=== PATIENT | female | born 1975 | race Two or more races ===

== ENCOUNTER 2020-10-13 15:33 | Inpatient (IN) | payer MEDICAID ==
[~2020-10-13] VITALS: Ht 160 cm; Wt 69.3 kg
[2020-10-13 16:59] LABS: BILIRUBIN,URINE NEGATIVE (NEG); CLARITY,URINE CLEAR; COLOR,URINE YELLOW; NITRITE,URINE NEGATIVE (NEG); PH,URINE 6.5 (<5.0-8.0); PROTEIN,URINE NEGATIVE (NEG-TRACE); UROBILINOGEN,URINE 0.2 mg/dL (0.2 mg/dL)
[2020-10-13 17:07] LABS: BACTERIA,URINE FEW /HPF (0-FEW)
[2020-10-13 17:28] LABS: BASO % 0 % (0-3); EOS # 0.2 x10^3/uL (0.0-0.7); EOS % 2 % (0-3); HEMATOCRIT 33.9 % (36.0-47.0); HEMOGLOBIN 11.2 g/dL (12.0-15.5); LYMPH # 1.1 x10^3/uL (1.0-4.8); LYMPH % 10 % (24-48); MEAN CORPUSCULAR HEMOGLOBIN 26 pg (25-35); MEAN CORPUSCULAR HGB CONC 33 g/dL (31-37); MEAN CORPUSCULAR VOLUME 80 fL (79-100); MONO # 0.9 x10^3/uL (0.0-1.1); MONO % 9 % (0-9); NEUT # 8.2 x10^3/uL (1.8-7.7); NEUT % 79 % (31-73); PLATELET COUNT 252 x10^3/uL (140-400); RED BLOOD COUNT 4.25 x10^6/uL (3.50-5.40); RED CELL DISTRIBUTION WIDTH 13.4 % (11.5-14.5); WHITE BLOOD COUNT 10.4 x10^3/uL (4.0-11.0)
[2020-10-13] MEDS ORDERED: ONDANSETRON PF 4 MG/2 ML VIAL. IV ONE (17:30)
[2020-10-13] MEDS ORDERED: KETOROLAC 30 MG/ML VIAL. IV ONE (17:30)
[2020-10-13] MEDS ORDERED: ACETAMINOPHEN 500 MG TABLET PO ONE (17:30)
[2020-10-13] MEDS ORDERED: IV NORMAL SALINE 1000ML BAG 1,000 ML IV ONE (17:30)
[2020-10-13 17:40] LABS: CALCIUM 8.3 mg/dL (8.5-10.1); CREATININE 0.7 mg/dL (0.6-1.0); GFR 90.9
[2020-10-13 17:45] LABS: ALBUMIN 3.4 g/dL (3.4-5.0); ALBUMIN/GLOBULIN RATIO 0.8 (1.0-1.7); TOTAL BILIRUBIN 0.2 mg/dL (0.2-1.0); TOTAL PROTEIN 7.5 g/dL (6.4-8.2)
--- NOTE | 2020-10-13 18:11 | RAD ---
Study: CT abdomen/pelvis without intravenous contrast Indication: Left flank pain. Fever. Comparison: None. Technique: Helical CT imaging performed of the abdomen and pelvis without the use of intravenous cont rast. Sagittal and coronal reformats were obtained. One or more of the following individualized dose reduction techniques were utilized for this examinat ion: 1. Automated exposure control 2. Adjustment of the mA and/or kV according to patient size 3. Use of iterative reconstruction technique. Findings: Inherently limited evaluation without intravenous contrast. Generalized uroepithelial thickening on the left in addition to mild inflammatory fatty stranding marilyn ng the left ureter and surrounding the left kidney. The left kidney is smaller in size relative to th e right with several areas of cortical thinning. Mild left hydronephrosis. No obstructing stone is id entified. Mild/moderate distention of the urinary bladder without wall thickening. No bladder stone o r definitive layering debris. The right kidney is normal in size and morphology. No intrarenal nephrolithiasis or collecting system dilatation on the right. No focal abnormality of the liver. Unremarkable gallbladder, biliary tree, pancreas and adrenal gland s. The spleen is within normal limits for size. Within normal limits uterus and adnexa. Unremarkable colon and appendix. Nonobstructed small bowel. U nremarkable stomach. Nonaneurysmal aorta. No lymphadenopathy. No free fluid or pneumoperitoneum. Nonspecific fatty reticulation of the ventral more so than dorsal subcutaneous tissues at several loc ations. No localized fluid collection within the abdominal wall soft tissues. Fat-containing umbilica l hernia without complex features. Partially imaged breast implants. Minimal basilar volume loss. No localized airspace infiltrate or no dule at the lung bases. The visualized mediastinal contents are within normal limits. No acute or aggressive osseous process. Impression: Generalized uroepithelial thickening of the left intrarenal collecting system and ureter in addition to mild perinephric and periureteral inflammation. Mild hydronephrosis on the left as well. No associ ated obstructing stone within the ureter or a recently passed stone within the urinary bladder. In th e setting of small size of the left kidney with areas of cortical thinning/scarring, acute pyelonephr itis is the leading consideration superimposed on the sequela of prior bouts of infection. Recommend correlation with urinalysis. Electronically signed by: OSMIN DODD MD (10/13/2020 6:08 PM) [facility]
[2020-10-13] MEDS ORDERED: cefTRIAXone IV Push 1 GM VIAL. IVP ONE (18:30)
--- NOTE | 2020-10-13 19:09 | PDOC1 ---
History and Physical Date of Admission Date of Admission DATE: 10/13/20 TIME: 19:08 Identification/Chief Complaint Chief Complaint fever, back pain since History of Present Illness History of Present Illness 45 yr old femal presented to er with fever, back pain, tachycardia x 4 days, now inc in severity, PT SPEAKS irish well WBC OK BUT has left shift lactic acid < 1 ua pos for leukocytes, has left cva tenderness ct c/w pyelo and sono shows no abscess, blood and urine cultured, iv zosyn started in ER estimate LOS > 48 HRS due to sepsis on presentation, likely will have cyclic spiking fevers Past Medical History Cardiovascular: No pertinent hx Pulmonary: No pertinent hx GI: No pertinent hx Heme/Onc: No pertinent hx Hepatobiliary: No pertinent hx Psych: No pertinent hx Infectious disease: No pertinent hx ENT: No pertinent hx Renal/: No pertinent hx Endocrine: No pertinent hx Family History Family History: Hypertension Social History Smoke: No ALCOHOL: occassional Drugs: None Current Medications Current Medications Current Medications Sodium Chloride 1,000 ml @ 1,000 mls/hr 1X ONCE IV Last administered on 10/13/20at 18:22; Start 10/13/20 at 17:30; Stop 10/13/20 at 18:29; Status DC Ondansetron HCl (Zofran) 4 mg 1X ONCE IV Last administered on 10/13/20at 18:21; Start 10/13/20 at 17:30; Stop 10/13/20 at 17:31; Status DC Ketorolac Tromethamine (Toradol 30mg Vial) 30 mg 1X ONCE IV Last administered on 10/13/20at 18:21; Start 10/13/20 at 17:30; Stop 10/13/20 at 17:31; Status DC Acetaminophen (Tylenol) 1,000 mg 1X ONCE PO Last administered on 10/13/20at 18:21; Start 10/13/20 at 17:30; Stop 10/13/20 at 17:31; Status DC Ceftriaxone Sodium (Rocephin) 1 gm 1X ONCE IVP ; Start 10/13/20 at 18:30; Stop 10/13/20 at 18:31; Status DC Allergies Allergies: Coded Allergies: No Known Drug Allergies (Unverified , 10/13/20) ROS Review of System Eyes: Denies change in visual acuity. [] HENT: Denies nasal congestion or sore throat. [] Respiratory: Denies cough or shortness of breath. [] Cardiovascular: Denies chest pain or edema. [] GI: Denies abdominal pain, nausea, vomiting, bloody stools or diarrhea. [] : Denies dysuria. [] Musculoskeletal: Denies back pain or joint pain. [] Integument: Denies rash. [] Neurologic: Denies headache, focal weakness or sensory changes. [] Endocrine: Denies polyuria or polydipsia. [] Lymphatic: Denies swollen glands. [] Psychiatric: Denies depression or anxiety. [] General: YES: Chills, Fatigue, Appetite, Other (fevere) PSYCHOLOGICAL ROS: No: Anxiety, Behavioral Disorder, Concentration difficultie, Decreased libido, Depression, Disorientation, Hallucinations, Hostility, Irritablity, Memory difficulties, Mood Swings, Obsessive thoughts, Physical abuse, Sexual abuse, Sleep disturbances, Suicidal ideation, Other Eyes: No Blurry vision, No Decreased vision, No Double vision, No Dry eyes, No Excessive tearing, No Eye Pain, No Itchy Eyes, No Loss of vision, No Photophobia, No Scotomata, No Uses contacts, No Uses glasses, No Other HEENT: No: Heacaches, Visual Changes, Hearing change, Nasal congestion, Nasal discharge, Oral lesions, Sinus pain, Sore Throat, Epistaxis, Sneezing, Snoring, Tinnitus, Vertigo, Vocal changes, Other ALLERGY AND IMMUNOLOGY: No: Hives, Insect Bite Sensitivity, Itchy/Watery Eyes, Nasal Congestion, Post Nasal Drip, Seasonal Allergies, Other Hematological and Lymphatic: No: Bleeding Problems, Blood Clots, Blood Presley sfusions, Brusing, Night Sweats, Pallor, Swollen Lymph Nodes, Other ENDOCRINE: No: Breast Changes, Galactorrhea, Hair Pattern Changes, Hot Flashes, Malaise/lethargy, Mood Swings, Palpitations, Polydipsia/polyuria, Skin Changes, Temperature Intolerance, Unexpected Weight Changes, Other Breast: No New/Changing Breast Lumps, No Nipple changes, No Nipple discharge, No Other Respiratory: No: Cough, Hemoptysis, Orthopnea, Pleuritic Pain, Shortness of breath, SOB with excertion, Sputum Changes, Stridor, Tachypnea, Wheezing, Other Cardiovascular: No Chest Pain, No Palpitations, No Orthopnea, No Paroxysmal Noc. Dyspnea, No Edema, No Lt Headedness, No Other Gastrointestinal: Yes Nausea, Yes Vomiting; No Abdominal Pain, No Diarrhea, No Constipation, No Melena, No Hematochezia, No Other Genitourinary: No Dysuria, No Frequency, No Incontinence, No Hematuria, No Retention, No Discharge, No Urgency, No Pain, No Flank Pain, No Other, No , No , No , No , No , No , No Musculoskeletal: No Gait Disturbance, No Joint Pain, No Joint Stiffness, No Joint Swelling, No Muscle Pain, No Muscular Weakness, No Pain In:, No Swelling In:, No Other Neurological: No Behavorial Changes, No Bowel/Bladder ControlChng, No Confusion, No Dizziness, No Gait Disturbance, No Headaches, No Impaired Coord/balance, No Memory Loss, No Numbness/Tingling, No Seizures, No Speech Problems, No Tremors, No Visual Changes, No Weakness, No Other Skin: No Dry Skin, No Eczema, No Hair Changes, No Lumps, No Mole Changes, No Mottling, No Nail Changes, No Pruritus, No Rash, No Skin Lesion Changes, No Other, No Acne Physical Exam Physical Exam left cva tenderness General: Alert, Oriented X3, Cooperative, mild distress HEENT: PERRLA Lungs: Clear to auscultation, Normal air movement Heart: S1S2, RRR, no thrills, no gallops, no murmurs Cardiovascular: S1, S2 Breasts: Not examined Abdomen: Normal bowel sounds, Soft, No tenderness Rectal Exam: not examined PELVIC: Examination not indicated Extremities: No cyanosis, No edema Neuro: Normal speech, Strength at 5/5 X4 ext, Sensation intact, Cranial nerves 3-12 NL Psych/Mental Status: Mental status NL, Mood NL Vitals Vitals Vital Signs Date Time Temp Pulse Resp B/P (MAP) Pulse Ox O2 Delivery O2 Flow Rate FiO2 10/13/20 16:41 101.2 99 18 120/60 (80) 99 Room Air 101.2 Labs Labs Laboratory Tests Test 10/13/20 16:45 10/13/20 16:53 10/13/20 17:10 Urine Collection Type Unknown Urine Color Yellow Urine Clarity Clear Urine pH 6.5 (<5.0-8.0) Urine Specific [place] <=1.005 (1.000-1.030) Urine Protein Negative mg/dL (NEG-TRACE) Urine Glucose (UA) Negative mg/dL (NEG) Urine Ketones (Stick) Negative mg/dL (NEG) Urine Blood Trace (NEG) Urine Nitrite Negative (NEG) Urine Bilirubin Negative (NEG) Urine Urobilinogen Dipstick 0.2 mg/dL (0.2 mg/dL) Urine Leukocyte Esterase Moderate (NEG) Urine RBC 1-2 /HPF (0-2) Urine WBC 11-20 /HPF (0-4) Urine Squamous Epithelial Cells Mod /LPF Urine Bacteria Few /HPF (0-FEW) Bedside Urine HCG, Qualitative Hcg negative (Negative) White Blood Count 10.4 x10^3/uL (4.0-11.0) Red Blood Count 4.25 x10^6/uL (3.50-5.40) Hemoglobin 11.2 g/dL (12.0-15.5) Hematocrit 33.9 % (36.0-47.0) Mean Corpuscular Volume 80 fL (79-100) Mean Corpuscular Hemoglobin 26 pg (25-35) Mean Corpuscular Hemoglobin Concent 33 g/dL (31-37) Red Cell Distribution Width 13.4 % (11.5-14.5) Platelet Count 252 x10^3/uL (140-400) Neutrophils (%) (Auto) 79 % (31-73) Lymphocytes (%) (Auto) 10 % (24-48) Monocytes (%) (Auto) 9 % (0-9) Eosinophils (%) (Auto) 2 % (0-3) Basophils (%) (Auto) 0 % (0-3) Neutrophils # (Auto) 8.2 x10^3/uL (1.8-7.7) Lymphocytes # (Auto) 1.1 x10^3/uL (1.0-4.8) Monocytes # (Auto) 0.9 x10^3/uL (0.0-1.1) Eosinophils # (Auto) 0.2 x10^3/uL (0.0-0.7) Basophils # (Auto) 0.0 x10^3/uL (0.0-0.2) Sodium Level 135 mmol/L (136-145) Potassium Level 4.0 mmol/L (3.5-5.1) Chloride Level 101 mmol/L (98-107) Carbon Dioxide Level 24 mmol/L (21-32) Anion Gap 10 (6-14) Blood Urea Nitrogen 13 mg/dL (7-20) Creatinine 0.7 mg/dL (0.6-1.0) Estimated GFR (Cockcroft-Gault) 90.9 BUN/Creatinine Ratio 19 (6-20) Glucose Level 93 mg/dL (70-99) Lactic Acid Level 0.8 mmol/L (0.4-2.0) Calcium Level 8.3 mg/dL (8.5-10.1) Total Bilirubin 0.2 mg/dL (0.2-1.0) Aspartate Amino Transf (AST/SGOT) 15 U/L (15-37) Alanine Aminotransferase (ALT/SGPT) 22 U/L (14-59) Alkaline Phosphatase 87 U/L (46-116) Total Protein 7.5 g/dL (6.4-8.2) Albumin 3.4 g/dL (3.4-5.0) Albumin/Globulin Ratio 0.8 (1.0-1.7) Laboratory Tests Test 10/13/20 16:45 10/13/20 16:53 10/13/20 17:10 Urine Collection Type Unknown Urine Color Yellow Urine Clarity Clear Urine pH 6.5 (<5.0-8.0) Urine Specific [place] <=1.005 (1.000-1.030) Urine Protein Negative mg/dL (NEG-TRACE) Urine Glucose (UA) Negative mg/dL (NEG) Urine Ketones (Stick) Negative mg/dL (NEG) Urine Blood Trace (NEG) Urine Nitrite Negative (NEG) Urine Bilirubin Negative (NEG) Urine Urobilinogen Dipstick 0.2 mg/dL (0.2 mg/dL) Urine Leukocyte Esterase Moderate (NEG) Urine RBC 1-2 /HPF (0-2) Urine WBC 11-20 /HPF (0-4) Urine Squamous Epithelial Cells Mod /LPF Urine Bacteria Few /HPF (0-FEW) Bedside Urine HCG, Qualitative Hcg negative (Negative) White Blood Count 10.4 x10^3/uL (4.0-11.0) Red Blood Count 4.25 x10^6/uL (3.50-5.40) Hemoglobin 11.2 g/dL (12.0-15.5) Hematocrit 33.9 % (36.0-47.0) Mean Corpuscular Volume 80 fL (79-100) Mean Corpuscular Hemoglobin 26 pg (25-35) Mean Corpuscular Hemoglobin Concent 33 g/dL (31-37) Red Cell Distribution Width 13.4 % (11.5-14.5) Platelet Count 252 x10^3/uL (140-400) Neutrophils (%) (Auto) 79 % (31-73) Lymphocytes (%) (Auto) 10 % (24-48) Monocytes (%) (Auto) 9 % (0-9) Eosinophils (%) (Auto) 2 % (0-3) Basophils (%) (Auto) 0 % (0-3) Neutrophils # (Auto) 8.2 x10^3/uL (1.8-7.7) Lymphocytes # (Auto) 1.1 x10^3/uL (1.0-4.8) Monocytes # (Auto) 0.9 x10^3/uL (0.0-1.1) Eosinophils # (Auto) 0.2 x10^3/uL (0.0-0.7) Basophils # (Auto) 0.0 x10^3/uL (0.0-0.2) Sodium Level 135 mmol/L (136-145) Potassium Level 4.0 mmol/L (3.5-5.1) Chloride Level 101 mmol/L (98-107) Carbon Dioxide Level 24 mmol/L (21-32) Anion Gap 10 (6-14) Blood Urea Nitrogen 13 mg/dL (7-20) Creatinine 0.7 mg/dL (0.6-1.0) Estimated GFR (Cockcroft-Gault) 90.9 BUN/Creatinine Ratio 19 (6-20) Glucose Level 93 mg/dL (70-99) Lactic Acid Level 0.8 mmol/L (0.4-2.0) Calcium Level 8.3 mg/dL (8.5-10.1) Total Bilirubin 0.2 mg/dL (0.2-1.0) Aspartate Amino Transf (AST/SGOT) 15 U/L (15-37) Alanine Aminotransferase (ALT/SGPT) 22 U/L (14-59) Alkaline Phosphatase 87 U/L (46-116) Total Protein 7.5 g/dL (6.4-8.2) Albumin 3.4 g/dL (3.4-5.0) Albumin/Globulin Ratio 0.8 (1.0-1.7) Images Images Exam: Ultrasound renal complete Indication: Acute pyelonephritis Technique: Real-time grayscale and color Doppler images of the kidneys were obta ined by the department stone setter apprentice. Comparisons: None FINDINGS: Right kidney measures 11.6 cm in length. No hydronephrosis. Left kidney measures 9.37 m in length. No hydronephrosis demonstrated on the prior CT is not well illustrated on the current ultrasound. Bladder is distended and appears thin-walled. Bilateral ureteral jets are noted. IMPRESSION: Bilateral ureteral jets noted. Likely persistent mild intrarenal hydronephrosis on the left. Electronically signed by: Ricky Umana MD (10/13/2020 8:11 PM) [facility] DICTATED and SIGNED BY: RICKY UMANA MD DATE: 10/13/[id number] 0 PATIENT: SURINDER ROMO ACCOUNT: [id number] : 1975 LOCATION: ER AGE: 45 SEX: F EXAM STATUS: REG ER ORD. PHYSICIAN: ZOE COLLIER APRN REASON: Left flank pain, fever PROCEDURE: CT ABDOMEN PELVIS WO CONTRAST Study: CT abdomen/pelvis without intravenous contrast Indication: Left flank pain. Fever. Comparison: None. Technique: Helical CT imaging performed of the abdomen and pelvis without the use of intravenous contrast. Sagittal and coronal reformats were obtained. One or more of the following individualized dose reduction techniques were utilized for this examination: 1. Automated exposure control 2. Adjustment of the mA and/or kV according to patient size 3. Use of iterative reconstruction technique. Findings: Inherently limited evaluation without intravenous contrast. Generalized uroepithelial thickening on the left in addition to mild inflammatory fatty stranding along the left ureter and surrounding the left kidney. The left kidney is smaller in size relative to the right with several areas of cortical thinning. Mild left hydronephrosis. No obstructing stone is identified. Mild/moderate distention of the urinary bladder without wall thickening. No bladder stone or definitive layering debris. The right kidney is normal in size and morphology. No intrarenal nephrolithiasis or collecting system dilatation on the right. No focal abnormality of the liver. Unremarkable gallbladder, biliary tree, pancreas and adrenal glands. The spleen is within normal limits for size. Within normal limits uterus and adnexa. Unremarkable colon and appendix. Nonobstructed small bowel. Unremarkable stomach. Nonaneurysmal aorta. No lymphadenopathy. No free fluid or pneumoperitoneum. Nonspecific fatty reticulation of the ventral more so than dorsal subcutaneous tissues at several locations. No localized fluid collection within the abdominal wall soft tissues. Fat-containing umbilical hernia without complex features. Partially imaged breast implants. Minimal basilar volume loss. No localized airspace infiltrate or nodule at the lung bases. The visualized mediastinal contents are within normal limits. No acute or aggressive osseous process. Impression: Generalized uroepithelial thickening of the left intrarenal collecting system and ureter in addition to mild perinephric and periureteral inflammation. Mild hydronephrosis on the left as well. No associated obstructing stone within the ureter or a recently passed stone within the urinary bladder. In the setting of small size of the left kidney with areas of cortical thinning/scarring, acute pyelonephritis is the leading consideration superimposed on the sequela of prior bouts of infection. Recommend correlation with urinalysis. Electronically signed by: OSMIN DODD MD (10/13/2020 6:08 PM) [facility] VTE Prophylaxis Ordered VTE Prophylaxis Devices: Yes VTE Pharmacological Prophylaxi: Yes Assessment/Plan Assessment/Plan impression 1. Acute pyelonephritis 2. Sepsis evidenced by fever, tachycardia 3. FEVER 4. Tachycardia 5. Generalized uroepithelial thickening of the left intrarenal collecting system and ureter in addition to mild perinephric and periureteral inflammation. Mild hydronephrosis on the left 6. on US Bilateral ureteral jets noted. Likely persistent mild intrarenal hydronephrosis on the left. plan site monitor admit blood cultures urine culture ID CONSULT RENAL SONO REVIEWED IV ZOSYN 3.75 GM Q 6 HRS dvt prophylaxis iv fluid support lactic acid 74 MIN pt exam, chart review, > 50% of time spent with exam, chart review, pt care coordination Justifications for Admission Other Justification OG BOJORQUEZ MD Oct 13, 2020 19:09
[2020-10-13] MEDS ORDERED: ALBUTEROL SULFATE 2.5 MG/3 ML NEBU. NEB PRN (19:15)
[2020-10-13] MEDS ORDERED: MAG HYDROX/ALUMINUM HYD/SIMETH 30 ML ORAL.SUSP PO PRN (19:15)
[2020-10-13] MEDS ORDERED: SODIUM PHOSPHATES 19/7GM 133 ML ENEMA. PR PRN (19:15)
[2020-10-13] MEDS ORDERED: ONDANSETRON PF 4 MG/2 ML VIAL. IV PRN (19:15)
[2020-10-13] MEDS ORDERED: guaiFENesin ORAL 200 MG/10 ML LIQUID. PO PRN (19:15)
[2020-10-13] MEDS ORDERED: ACETAMINOPHEN 325 MG TABLET. PO PRN (19:15)
[2020-10-13] MEDS ORDERED: ACETAMINOPHEN 650 MG SUPP.RECT. PR PRN (19:15)
[2020-10-13] MEDS ORDERED: DOCUSATE SODIUM 100 MG CAPSULE. PO PRN (19:15)
[2020-10-13] MEDS ORDERED: LORazepam 0.5 MG TABLET PO PRN (19:15)
[2020-10-13] MEDS ORDERED: 0.9 % SODIUM CHLORIDE 10 ML DISP.SYRIN. IV PRN (19:15)
--- NOTE | 2020-10-13 19:47 | ED.ADGEN ---
Past Medical History Past Medical History: Kidney Stone Past Surgical History: No Surgical History Smoking Status: Never Smoker Alcohol Use: Occasionally General Adult EDM: Chief Complaint: BACK PAIN - NO INJURY HPI: HPI: Patient is a 45 year old female female who presents emergency department with complaints of left flank pain and pain with urination for the last 4 days. Patient states that she has also had a fever today. Patient reports that 2 days ago she had some nausea and vomiting but denies any nausea, vomiting, or diarrhea today. Patient also denies any cough, shortness of breath, wheezing, chest pain, hematuria, or difficulty voiding. She states she has had some increased urinary frequency. She denies any irregular vaginal odor or vaginal discharge. Patient reports her pain is 8 out of 10 on the pain scale, she took 3 tablets of ibuprofen at 7:00 this morning which helped for short period of time but the pain just returns. She denies any constipation or bloody stools, her last bowel movement was this morning and it was normal per patient. Review of Systems: Review of Systems: Complete ROS is negative unless otherwise noted in HPI. Current Medications: Current Medications Medications (Trade) Dose Ordered Sig/Pao Start Time Stop Time Status Last Admin Dose Admin Acetaminophen (Tylenol) 1,000 mg 1X ONCE 10/13/20 17:30 10/13/20 17:31 DC 10/13/20 18:21 1,000 MG Ceftriaxone Sodium (Rocephin) 1 gm 1X ONCE 10/13/20 18:30 10/13/20 18:31 DC 10/13/20 21:35 1 GM Ketorolac Tromethamine (Toradol 30mg Vial) 30 mg 1X ONCE 10/13/20 17:30 10/13/20 17:31 DC 10/13/20 18:21 30 MG Ondansetron HCl (Zofran) 4 mg 1X ONCE 10/13/20 17:30 10/13/20 17:31 DC 10/13/20 18:21 4 MG Sodium Chloride 1,000 ml @ 1,000 mls/hr 1X ONCE 10/13/20 17:30 10/13/20 18:29 DC 10/13/20 18:22 1,000 MLS/HR Allergies: Allergies: Allergies Coded Allergies Type Severity Reaction Last Updated Verified No Known Drug Allergies 10/13/20 No Physical Exam: PE: See Above Constitutional: Well developed, well nourished, no acute distress, ill appearance HENT: Normocephalic, atraumatic, bilateral external ears normal, oropharynx moist, no oral exudates, nose normal. [] Eyes: PERRLA, EOMI, conjunctiva normal, no discharge. [] Neck: Normal range of motion, no stridor. [] Cardiovascular:Heart rate regular rhythm Lungs & Thorax: Respirations even and unlabored, no retractions, no respiratory distress Abdomen: soft, lower left quadrant TTP, no rebound tenderness, no guarding, no masses, no pulsatile masses. [] Skin: Flushed, hot, dry, no rash Back: No bony tenderness, left CVA tenderness. [] Extremities: No cyanosis, ROM intact, no edema. [] Neurologic: Alert and oriented X 3, normal motor function, normal sensory function, no focal deficits noted. [] Psychologic: Affect normal, judgement normal, mood normal. [] Current Patient Data: Labs: Laboratory Tests Test 10/13/20 16:45 10/13/20 16:53 10/13/20 17:10 Urine Collection Type Unknown Urine Color Yellow Urine Clarity Clear Urine pH 6.5 (<5.0-8.0) Urine Specific [place] <=1.005 (1.000-1.030) Urine Protein Negative mg/dL (NEG-TRACE) Urine Glucose (UA) Negative mg/dL (NEG) Urine Ketones (Stick) Negative mg/dL (NEG) Urine Blood Trace (NEG) Urine Nitrite Negative (NEG) Urine Bilirubin Negative (NEG) Urine Urobilinogen Dipstick 0.2 mg/dL (0.2 mg/dL) Urine Leukocyte Esterase Moderate (NEG) Urine RBC 1-2 /HPF (0-2) Urine WBC 11-20 /HPF (0-4) Urine Squamous Epithelial Cells Mod /LPF Urine Bacteria Few /HPF (0-FEW) POC Urine HCG, Qualitative Hcg negative (Negative) White Blood Count 10.4 x10^3/uL (4.0-11.0) Red Blood Count 4.25 x10^6/uL (3.50-5.40) Hemoglobin 11.2 g/dL (12.0-15.5) L Hematocrit 33.9 % (36.0-47.0) L Mean Corpuscular Volume 80 fL (79-100) Mean Corpuscular Hemoglobin 26 pg (25-35) Mean Corpuscular Hemoglobin Concent 33 g/dL (31-37) Red Cell Distribution Width 13.4 % (11.5-14.5) Platelet Count 252 x10^3/uL (140-400) Neutrophils (%) (Auto) 79 % (31-73) H Lymphocytes (%) (Auto) 10 % (24-48) L Monocytes (%) (Auto) 9 % (0-9) Eosinophils (%) (Auto) 2 % (0-3) Basophils (%) (Auto) 0 % (0-3) Neutrophils # (Auto) 8.2 x10^3/uL (1.8-7.7) H Lymphocytes # (Auto) 1.1 x10^3/uL (1.0-4.8) Monocytes # (Auto) 0.9 x10^3/uL (0.0-1.1) Eosinophils # (Auto) 0.2 x10^3/uL (0.0-0.7) Basophils # (Auto) 0.0 x10^3/uL (0.0-0.2) Sodium Level 135 mmol/L (136-145) L Potassium Level 4.0 mmol/L (3.5-5.1) Chloride Level 101 mmol/L (98-107) Carbon Dioxide Level 24 mmol/L (21-32) Anion Gap 10 (6-14) Blood Urea Nitrogen 13 mg/dL (7-20) Creatinine 0.7 mg/dL (0.6-1.0) Estimated GFR (Cockcroft-Gault) 90.9 BUN/Creatinine Ratio 19 (6-20) Glucose Level 93 mg/dL (70-99) Lactic Acid Level 0.8 mmol/L (0.4-2.0) Calcium Level 8.3 mg/dL (8.5-10.1) L Total Bilirubin 0.2 mg/dL (0.2-1.0) Aspartate Amino Transferase (AST) 15 U/L (15-37) Alanine Aminotransferase (ALT) 22 U/L (14-59) Alkaline Phosphatase 87 U/L (46-116) Total Protein 7.5 g/dL (6.4-8.2) Albumin 3.4 g/dL (3.4-5.0) Albumin/Globulin Ratio 0.8 (1.0-1.7) L Laboratory Tests 10/13/20 17:10 Laboratory Tests 10/13/20 17:10 Vital Signs: Vital Signs Date Time Temp Pulse Resp B/P (MAP) Pulse Ox O2 Delivery O2 Flow Rate FiO2 10/13/20 19:00 86 110/56 (74) 96 Room Air 10/13/20 16:41 101.2 18 101.2 EKG: EKG: [] Heart Score: C/O Chest Pain: No Risk Scores: Score 0 - 3: 2.5% MACE over next 6 weeks - Discharge Home Score 4 - 6: 20.3% MACE over next 6 weeks - Admit for Clinical Observation Score 7 - 10: 72.7% MACE over next 6 weeks - Early Invasive Strategies Radiology/Procedures: Radiology/Procedures: PROCEDURE: CT ABDOMEN PELVIS WO CONTRAST Study: CT abdomen/pelvis without intravenous contrast Indication: Left flank pain. Fever. Comparison: None. Technique: Helical CT imaging performed of the abdomen and pelvis without the use of intravenous contrast. Sagittal and coronal reformats were obtained. One or more of the following individualized dose reduction techniques were utilized for this examination: 1. Automated exposure control 2. Adjustment of the mA and/or kV according to patient size 3. Use of iterative reconstruction technique. Findings: Inherently limited evaluation without intravenous contrast. Generalized uroepithelial thickening on the left in addition to mild inflammatory fatty stranding along the left ureter and surrounding the left kidney. The left kidney is smaller in size relative to the right with several areas of cortical thinning. Mild left hydronephrosis. No obstructing stone is identified. Mild/moderate distention of the urinary bladder without wall thickening. No bladder stone or definitive layering debris. The right kidney is normal in size and morphology. No intrarenal nephrolithiasis or collecting system dilatation on the right. No focal abnormality of the liver. Unremarkable gallbladder, biliary tree, pancreas and adrenal glands. The spleen is within normal limits for size. Within normal limits uterus and adnexa. Unremarkable colon and appendix. Nonobstructed small bowel. Unremarkable stomach. Nonaneurysmal aorta. No lymphadenopathy. No free fluid or pneumoperitoneum. Nonspecific fatty reticulation of the ventral more so than dorsal subcutaneous tissues at several locations. No localized fluid collection within the abdominal wall soft tissues. Fat-containing umbilical hernia without complex features. Partially imaged breast implants. Minimal basilar volume loss. No localized airspace infiltrate or nodule at the lung bases. The visualized mediastinal contents are within normal limits. No acute or aggressive osseous process. Impression: Generalized uroepithelial thickening of the left intrarenal collecting system and ureter in addition to mild perinephric and periureteral inflammation. Mild hydronephrosis on the left as well. No associated obstructing stone within the ureter or a recently passed stone within the urinary bladder. In the setting of small size of the left kidney with areas of cortical thinning/scarring, acute pyelonephritis is the leading consideration superimposed on the sequela of prior bouts of infection. Recommend correlation with urinalysis. Electronically signed by: OSMIN DODD MD (10/13/2020 6:08 PM) [facility] [] Course & Med Decision Making: Course & Med Decision Making Pertinent Labs and Imaging studies reviewed. (See chart for details) 1909-spoke with Dr. Flanagan who is the admitting physician, and care was assumed following discussion of patient. Will admit patient for acute pyelonephritis, advised that 1 g of Rocephin was given in ER. Patient's vital signs stable. Patient remains afebrile, appears nontoxic, respirations even and unlabored. Patient will be admitted to the medical/surgical floor. Patient's case and plan of care also discussed with Dr. Granado [] Nadia Disclaimer: Nadia Disclaimer: This electronic medical record was generated, in whole or in part, using a voice recognition dictation system. I have reviewed the PA/WEATHERIZATION INSTALLER's note and Plan of Care. I was available for consultation as needed during the patient's visit in the emergency department. I agree with the clinical impression, plans and disposition. Dr. Granado Departure Departure Impression: Primary Impression: Pyelonephritis Disposition: ADMITTED INPT THIS HOSP Admitting Physician: LAUREN (Panchito) Condition: STABLE Referrals: NO PCP (PCP) ZOE COLLIER APRN Oct 13, 2020 19:46 CURTIS GRANADO DO Oct 14, 2020 08:09
--- NOTE | 2020-10-13 20:13 | RAD ---
Exam: Ultrasound renal complete Indication: Acute pyelonephritis Technique: Real-time grayscale and color Doppler images of the kidneys were obtained by the [facility] lepidopterist. Comparisons: None FINDINGS: Right kidney measures 11.6 cm in length. No hydronephrosis. Left kidney measures 9.37 m in length. No hydronephrosis demonstrated on the prior CT is not well ill ustrated on the current ultrasound. Bladder is distended and appears thin-walled. Bilateral ureteral jets are noted. IMPRESSION: Bilateral ureteral jets noted. Likely persistent mild intrarenal hydronephrosis on the left. Electronically signed by: Ricky Corbin MD (10/13/2020 8:11 PM) [facility]
[2020-10-13] MEDS ORDERED: HYDROmorphone 2 MG/ML VIAL IVP PRN (21:00)
[2020-10-13] MEDS: IV NORMAL SALINE 1000ML BAG 1,000 ML IV SCH (21:33)
[2020-10-13] MEDS: ENOXAPARIN 40 MG/0.4 ML SYRINGE. SQ SCH (21:34)
[2020-10-13] MEDS: PIPERACILLIN/TAZOBACTAM 3.375 GM in IV NORMAL SALINE 50ML 50 ML IV SCH (21:35)
[2020-10-13 21:50] VITALS: BP 96/53
--- NOTE | 2020-10-13 22:00 | NUR ---
PT ADMITTED FROM ER TO ROOM 444, PT AMBULATED TO BED W/O ASSISTANCE. PT A/OX4, PT DENIES PAIN AT THIS TIME. ASSESSMENT AND HISTORY COMPLETE. ADMISSION PACKET GIVEN, DR GOEL CONSULTED PER ORDER. PT ORIENTED TO UNIT, STAFF AND EXPLAINED POC. CALL LIGHT IN PLACE WILL CONT TO MONITOR PT STATUS AND SAFETY. PMRN
[2020-10-13 23:00] VITALS: BP 86/47
[2020-10-13 23:40] VITALS: BP 94/52
[2020-10-14] MEDS: PIPERACILLIN/TAZOBACTAM 3.375 GM in IV NORMAL SALINE 50ML 50 ML IV SCH ×2 (01:29→05:34)
[2020-10-14 03:00] VITALS: BP 92/53
[2020-10-14] MEDS: IV NORMAL SALINE 1000ML BAG 1,000 ML IV SCH ×3 (03:35→18:08)
[2020-10-14 06:47] LABS: CALCIUM 7.5 mg/dL (8.5-10.1); CREATININE 0.7 mg/dL (0.6-1.0); GFR 90.9; POTASSIUM 3.9 mmol/L (3.5-5.1)
[2020-10-14 06:58] LABS: BASO % 1 % (0-3); EOS # 0.3 x10^3/uL (0.0-0.7); EOS % 4 % (0-3); HEMATOCRIT 30.2 % (36.0-47.0); HEMOGLOBIN 10.1 g/dL (12.0-15.5); LYMPH # 1.7 x10^3/uL (1.0-4.8); LYMPH % 22 % (24-48); MEAN CORPUSCULAR HEMOGLOBIN 27 pg (25-35); MEAN CORPUSCULAR HGB CONC 34 g/dL (31-37); MEAN CORPUSCULAR VOLUME 81 fL (79-100); MONO # 0.9 x10^3/uL (0.0-1.1); MONO % 11 % (0-9); NEUT # 4.8 x10^3/uL (1.8-7.7); NEUT % 62 % (31-73); PLATELET COUNT 212 x10^3/uL (140-400); RED BLOOD COUNT 3.71 x10^6/uL (3.50-5.40); RED CELL DISTRIBUTION WIDTH 13.5 % (11.5-14.5); WHITE BLOOD COUNT 7.7 x10^3/uL (4.0-11.0)
[2020-10-14 07:00] VITALS: BP 103/53
--- NOTE | 2020-10-14 09:32 | PDOC ---
Infectious Disease Note Vital Sign Vital Signs Vital Signs Date Time Temp Pulse Resp B/P (MAP) Pulse Ox O2 Delivery O2 Flow Rate FiO2 10/14/20 07:00 98.5 72 18 103/53 (70) 100 Room Air 98.5 Labs Lab Laboratory Tests Test 10/13/20 16:45 10/13/20 16:53 10/13/20 17:10 10/14/20 06:10 Urine Collection Type Unknown Urine Color Yellow Urine Clarity Clear Urine pH 6.5 (<5.0-8.0) Urine Specific [place] <=1.005 (1.000-1.030) Urine Protein Negative mg/dL (NEG-TRACE) Urine Glucose (UA) Negative mg/dL (NEG) Urine Ketones (Stick) Negative mg/dL (NEG) Urine Blood Trace (NEG) Urine Nitrite Negative (NEG) Urine Bilirubin Negative (NEG) Urine Urobilinogen Dipstick 0.2 mg/dL (0.2 mg/dL) Urine Leukocyte Esterase Moderate (NEG) Urine RBC 1-2 /HPF (0-2) Urine WBC 11-20 /HPF (0-4) Urine Squamous Epithelial Cells Mod /LPF Urine Bacteria Few /HPF (0-FEW) Bedside Urine HCG, Qualitative Hcg negative (Negative) White Blood Count 10.4 x10^3/uL (4.0-11.0) 7.7 x10^3/uL (4.0-11.0) Red Blood Count 4.25 x10^6/uL (3.50-5.40) 3.71 x10^6/uL (3.50-5.40) Hemoglobin 11.2 g/dL (12.0-15.5) 10.1 g/dL (12.0-15.5) Hematocrit 33.9 % (36.0-47.0) 30.2 % (36.0-47.0) Mean Corpuscular Volume 80 fL (79-100) 81 fL (79-100) Mean Corpuscular Hemoglobin 26 pg (25-35) 27 pg (25-35) Mean Corpuscular Hemoglobin Concent 33 g/dL (31-37) 34 g/dL (31-37) Red Cell Distribution Width 13.4 % (11.5-14.5) 13.5 % (11.5-14.5) Platelet Count 252 x10^3/uL (140-400) 212 x10^3/uL (140-400) Neutrophils (%) (Auto) 79 % (31-73) 62 % (31-73) Lymphocytes (%) (Auto) 10 % (24-48) 22 % (24-48) Monocytes (%) (Auto) 9 % (0-9) 11 % (0-9) Eosinophils (%) (Auto) 2 % (0-3) 4 % (0-3) Basophils (%) (Auto) 0 % (0-3) 1 % (0-3) Neutrophils # (Auto) 8.2 x10^3/uL (1.8-7.7) 4.8 x10^3/uL (1.8-7.7) Lymphocytes # (Auto) 1.1 x10^3/uL (1.0-4.8) 1.7 x10^3/uL (1.0-4.8) Monocytes # (Auto) 0.9 x10^3/uL (0.0-1.1) 0.9 x10^3/uL (0.0-1.1) Eosinophils # (Auto) 0.2 x10^3/uL (0.0-0.7) 0.3 x10^3/uL (0.0-0.7) Basophils # (Auto) 0.0 x10^3/uL (0.0-0.2) 0.0 x10^3/uL (0.0-0.2) Sodium Level 135 mmol/L (136-145) 139 mmol/L (136-145) Potassium Level 4.0 mmol/L (3.5-5.1) 3.9 mmol/L (3.5-5.1) Chloride Level 101 mmol/L (98-107) 108 mmol/L (98-107) Carbon Dioxide Level 24 mmol/L (21-32) 23 mmol/L (21-32) Anion Gap 10 (6-14) 8 (6-14) Blood Urea Nitrogen 13 mg/dL (7-20) 16 mg/dL (7-20) Creatinine 0.7 mg/dL (0.6-1.0) 0.7 mg/dL (0.6-1.0) Estimated GFR (Cockcroft-Gault) 90.9 90.9 BUN/Creatinine Ratio 19 (6-20) Glucose Level 93 mg/dL (70-99) 96 mg/dL (70-99) Lactic Acid Level 0.8 mmol/L (0.4-2.0) Calcium Level 8.3 mg/dL (8.5-10.1) 7.5 mg/dL (8.5-10.1) Total Bilirubin 0.2 mg/dL (0.2-1.0) Aspartate Amino Transf (AST/SGOT) 15 U/L (15-37) Alanine Aminotransferase (ALT/SGPT) 22 U/L (14-59) Alkaline Phosphatase 87 U/L (46-116) Total Protein 7.5 g/dL (6.4-8.2) Albumin 3.4 g/dL (3.4-5.0) Albumin/Globulin Ratio 0.8 (1.0-1.7) Objective Assessment pt seen, consult dictated Plan Plan of Care // TERESA GOEL MD Oct 14, 2020 09:31
--- NOTE | 2020-10-14 09:48 | NUR ---
SW following. Discussed with RN, pt from home with spouse, room air, regular diet. ID consulted. SW consulted for DPOA paperwork - SALVADOR requested Dee Dee (SALVADOR) meet with pt RE DPOA paperwork due to not having a notary. SALVADOR will continue to follow.
[2020-10-14] MEDS ORDERED: cefTRIAXone IV Push 2 GM VIAL. IVP SCH (10:00)
[2020-10-14 11:00] VITALS: BP 121/66
--- NOTE | 2020-10-14 11:23 | NUR ---
This SW asked to compete advanced directive paperwork. SW met with patient. Pt a/o and able to make needs known. Pt requesting to list her Leonardo Roberson ([phone]) as her primary agent for the power of employment law attorney for HC. Pt stated she has 3 adult children but does not want to list any alternate agents at this time. POA for HC form notarized and provided to pt with copies. Copy placed on pt's chart. No further needs from this SW.
--- NOTE | 2020-10-14 11:53 | CONS ---
DATE OF CONSULTATION: 10/14/2020 REQUESTING PHYSICIAN: Dr. Flanagan. REASON FOR CONSULTATION: Possible pyelonephritis. HISTORY OF PRESENT ILLNESS: This is a 45-year-old female who came in with left-sided flank pain. The patient had vomited once at home, she says. Patient was noted to have 101.2 temperature. Patient had a CT scan of the abdomen that showed questionable pyelonephritis. Her urinalysis is slightly abnormal, 11-20 wbc's. White count is normal. The patient has been started on Zosyn and consult has been requested. The patient is very comfortable. Denies any nausea, vomiting, diarrhea. Denies any urinary symptoms. Denies any chest pain, shortness of breath, abdominal pain. She does have flank pain. PAST MEDICAL HISTORY: Positive for patient has had almost 16 years ago, she had a urostomy placement done and then internal stent placement done, which was removed in [place]. 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 SOCIAL HISTORY: Negative for smoking. Occasional alcohol use, no drug use. ALLERGIES: No known drug allergies. CURRENT MEDICATIONS: Reviewed. REVIEW OF SYSTEMS: As in HPI. All other systems reviewed are negative. PHYSICAL EXAMINATION: GENERAL: Alert, oriented female, not in distress. VITAL SIGNS: Stable, afebrile. HEENT: NAD. NECK: Supple, no JVP, no lymphadenopathy. LUNGS: Clear. HEART: S1, S2 regular. ABDOMEN: Soft, nontender, no organomegaly. EXTREMITIES: No edema, cyanosis. SKIN: Unremarkable. NEUROLOGIC: The patient is alert, awake and appropriate. No focal neurologic deficit. There is no true CVA tenderness. LABORATORY DATA: White count is 7.7. BUN and creatinine is normal. Her urinalysis, as I mentioned, 11-20 wbc's, moderate leukocyte esterase, nitrite negative. Urine culture is pending. Blood culture is pending. Abdominal ultrasound and CT reviewed. CT showed there is thickening of the left intrarenal collecting system and ureter with mild perinephric and periureteral inflammation, no obstructive stone seen. There is cortical thinning of left kidney and smaller size, this all looks like it is chronic changes. IMPRESSION: 1. Fever. 2. Left flank pain. 3. Slightly abnormal urinalysis. I am not entirely convinced that she has pyelonephritis. The patient probably has changes on the CT are old changes. RECOMMENDATIONS: We will just treat as complicated urinary tract infection with scar tissue in the past. We will change down Zosyn to Rocephin, supportive care and we will continue to follow. Thank you very much, Dr. Flanagan, for giving me the opportunity to participate in this patient's care. TERESA GOEL MD DR: SHAZIA/batsheva JOB#: [id number] / [id number] SANJUANITA
[2020-10-14 15:00] VITALS: BP 109/61
--- NOTE | 2020-10-14 15:10 | NUR ---
Patient has temperature of 100.5, tylenol administered.
--- NOTE | 2020-10-14 17:32 | PDOC ---
[employer] PROGRESS NOTE Date of Service DOS: DATE: 10/14/20 TIME: 17:27 Chief Complaint Chief Complaint Assessment/Plan 1. Acute pyelonephritis 2. Sepsis evidenced by fever, tachycardia 3. FEVER 4. Tachycardia 5. Generalized uroepithelial thickening of the left intrarenal collecting system and ureter in addition to mild perinephric and periureteral inflammation. Mild hydronephrosis on the left 6. on US Bilateral ureteral jets noted. Likely persistent mild intrarenal hydronephrosis on the left. Appreciate ID consultcontinue empiric IV antibiotics switched from Zosyn to Rocephin, pending urine cultures History of Present Illness History of Present Illness 10/14/2020 No acute events overnight. No concerns from nursing. Patient seen and examined bedside and is afebrile. Patient's chart, labs, images were reviewed and discussed with RN 45 yr old femjase presented to er with fever, back pain, tachycardia x 4 days, now inc in severity, PT SPEAKS vietnamese well WBC OK BUT has left shift lactic acid < 1 ua pos for leukocytes, has left cva tenderness ct c/w pyelo and sono shows no abscess, blood and urine cultured, iv zosyn started in ER estimate LOS > 48 HRS due to sepsis on presentation, likely will have cyclic spiking fevers Vitals/I&O Vitals/I&O: Vital Signs Date Time Temp Pulse Resp B/P (MAP) Pulse Ox O2 Delivery O2 Flow Rate FiO2 10/14/20 15:00 97.9 85 18 109/61 (77) 98 Room Air 97.9 I & O 10/13/20 10/13/20 10/14/20 15:00 23:00 07:00 Intake Total 50 ml Balance 50 ml Physical Exam General: Alert, Oriented X3, Cooperative, mild distress Abdomen: Normal bowel sounds, Soft, No tenderness Extremities: No cyanosis, No edema Labs Labs: Laboratory Tests Test 10/14/20 06:10 White Blood Count 7.7 x10^3/uL (4.0-11.0) Red Blood Count 3.71 x10^6/uL (3.50-5.40) Hemoglobin 10.1 g/dL (12.0-15.5) Hematocrit 30.2 % (36.0-47.0) Mean Corpuscular Volume 81 fL (79-100) Mean Corpuscular Hemoglobin 27 pg (25-35) Mean Corpuscular Hemoglobin Concent 34 g/dL (31-37) Red Cell Distribution Width 13.5 % (11.5-14.5) Platelet Count 212 x10^3/uL (140-400) Neutrophils (%) (Auto) 62 % (31-73) Lymphocytes (%) (Auto) 22 % (24-48) Monocytes (%) (Auto) 11 % (0-9) Eosinophils (%) (Auto) 4 % (0-3) Basophils (%) (Auto) 1 % (0-3) Neutrophils # (Auto) 4.8 x10^3/uL (1.8-7.7) Lymphocytes # (Auto) 1.7 x10^3/uL (1.0-4.8) Monocytes # (Auto) 0.9 x10^3/uL (0.0-1.1) Eosinophils # (Auto) 0.3 x10^3/uL (0.0-0.7) Basophils # (Auto) 0.0 x10^3/uL (0.0-0.2) Sodium Level 139 mmol/L (136-145) Potassium Level 3.9 mmol/L (3.5-5.1) Chloride Level 108 mmol/L (98-107) Carbon Dioxide Level 23 mmol/L (21-32) Anion Gap 8 (6-14) Blood Urea Nitrogen 16 mg/dL (7-20) Creatinine 0.7 mg/dL (0.6-1.0) Estimated GFR (Cockcroft-Gault) 90.9 Glucose Level 96 mg/dL (70-99) Calcium Level 7.5 mg/dL (8.5-10.1) Comment Review of Relevant I have reviewed the following items gurdeep (where applicable) has been applied. Medications: Current Medications Medications (Trade) Dose Ordered Sig/Pao Route PRN Reason Start Time Stop Time Status Last Admin Dose Admin Sodium Chloride 1,000 ml @ 1,000 mls/hr 1X ONCE IV 10/13/20 17:30 10/13/20 18:29 DC 10/13/20 18:22 Ondansetron HCl (Zofran) 4 mg 1X ONCE IV 10/13/20 17:30 10/13/20 17:31 DC 10/13/20 18:21 Ketorolac Tromethamine (Toradol 30mg Vial) 30 mg 1X ONCE IV 10/13/20 17:30 10/13/20 17:31 DC 10/13/20 18:21 Acetaminophen (Tylenol) 1,000 mg 1X ONCE PO 10/13/20 17:30 10/13/20 17:31 DC 10/13/20 18:21 Ceftriaxone Sodium (Rocephin) 1 gm 1X ONCE IVP 10/13/20 18:30 10/13/20 18:31 DC 10/13/20 21:35 Sodium Chloride 1,000 ml @ 130 mls/hr [id number] IV 10/13/20 20:00 10/14/20 11:18 Acetaminophen (Tylenol) 650 mg PRN Q4HRS PRN PO TEMP OVER 100.4F OR MILD PAIN 10/13/20 19:15 10/14/20 14:55 Enoxaparin Sodium (Lovenox 40mg Syringe) 40 mg Q24H SQ 10/13/20 21:00 10/13/20 21:34 Piperacillin Sod/ Tazobactam Sod 3.375 gm/Sodium Chloride 50 ml @ 100 mls/hr Q6HRS IV 10/13/20 19:30 10/14/20 09:44 DC 10/14/20 05:34 Hydromorphone HCl (Dilaudid) 0.5 mg PRN Q3HRS PRN IVP SEVERE PAIN 7-10 10/13/20 21:00 10/13/20 21:35 Ceftriaxone Sodium (Rocephin) 2 gm Q24H IVP 10/14/20 10:00 10/14/20 10:15 Justifications for Admission Other Justification acute pyelonephritis RONEL WHITTINGTON MD Oct 14, 2020 17:32
[2020-10-14 19:30] VITALS: BP 109/67
[2020-10-14] MEDS: LACTOBACILLUS RHAMNOSUS GG 1 CAPSULE. PO SCH (20:58)
[2020-10-14] MEDS: ENOXAPARIN 40 MG/0.4 ML SYRINGE. SQ SCH (20:59)
[2020-10-14 23:09] VITALS: BP 117/76
[2020-10-15] MEDS: IV NORMAL SALINE 1000ML BAG 1,000 ML IV SCH (02:33)
[2020-10-15 03:12] VITALS: BP 104/62
[2020-10-15 07:11] VITALS: BP 102/64
[2020-10-15] MEDS: LACTOBACILLUS RHAMNOSUS GG 1 CAPSULE. PO SCH (08:23)
[2020-10-15] MEDS ORDERED: LACT1CAP19 PO (08:42)
[2020-10-15] MEDS ORDERED: ACET325T21 PO (08:42)
--- NOTE | 2020-10-15 09:05 | PDOC ---
Infectious Disease Note Subjective Subjective Patient is feeling much better ready to go home says ROS ROS No nausea vomiting diarrhea chest pain shortness of breath flank pain is gone Vital Sign Vital Signs Vital Signs Date Time Temp Pulse Resp B/P (MAP) Pulse Ox O2 Delivery O2 Flow Rate FiO2 10/15/20 07:50 Room Air 10/15/20 07:11 99.0 83 18 102/64 (77) 99 99.0 Physical Exam PHYSICAL EXAM GENERAL: Alert, oriented female, not in distress. VITAL SIGNS: Stable, afebrile. HEENT: NAD. NECK: Supple, no JVP, no lymphadenopathy. LUNGS: Clear. HEART: S1, S2 regular. ABDOMEN: Soft, nontender, no organomegaly. EXTREMITIES: No edema, cyanosis. SKIN: Unremarkable. NEUROLOGIC: The patient is alert, awake and appropriate. No focal neurologic deficit. There is no true CVA tenderness. Labs Micro Microbiology 10/13/20 Blood Culture - Preliminary, Resulted NO GROWTH AFTER 1 DAY 10/13/20 Urine Culture - Preliminary, Resulted Objective Assessment IMPRESSION: 1. Fever. 2. Left flank pain. 3. Slightly abnormal urinalysis. I am not entirely convinced that she has pyelonephritis. The patient probably has changes on the CTR old and is not COVID since she has had COVID in May. Plan Plan of Care Patient can be discharged on p.o. antibiotics TERESA GOEL MD Oct 15, 2020 09:05
--- NOTE | 2020-10-15 09:06 | PDOC ---
[employer] PROGRESS NOTE Date of Service DOS: DATE: 10/15/20 TIME: 09:03 Chief Complaint Chief Complaint Assessment/Plan 1. Acute pyelonephritis 2. Sepsis evidenced by fever, tachycardia 3. FEVER 4. Tachycardia 5. Generalized uroepithelial thickening of the left intrarenal collecting system and ureter in addition to mild perinephric and periureteral inflammation. Mild hydronephrosis on the left 6. on US Bilateral ureteral jets noted. Likely persistent mild intrarenal hydronephrosis on the left. Appreciate ID consultcontinue empiric IV antibiotics switched from Zosyn to Rocephin, pending urine cultures History of Present Illness History of Present Illness 10/15/2020 No acute overnight events Patient seen and examined at bedside Chart reviewed Discussed with RN Patient is feeling much better today, possible discharge on oral antibiotics. 10/14/2020 No acute events overnight. No concerns from nursing. Patient seen and examined bedside and is afebrile. Patient's chart, labs, images were reviewed and discussed with RN 45 yr old femal presented to er with fever, back pain, tachycardia x 4 days, now inc in severity, PT SPEAKS welsh well WBC OK BUT has left shift lactic acid < 1 ua pos for leukocytes, has left cva tenderness ct c/w pyelo and sono shows no abscess, blood and urine cultured, iv zosyn started in ER estimate LOS > 48 HRS due to sepsis on presentation, likely will have cyclic spiking fevers Vitals/I&O Vitals/I&O: Vital Signs Date Time Temp Pulse Resp B/P (MAP) Pulse Ox O2 Delivery O2 Flow Rate FiO2 10/15/20 07:50 Room Air 10/15/20 07:11 99.0 83 18 102/64 (77) 99 99.0 I & O 10/14/20 10/14/20 10/15/20 15:00 23:00 07:00 Intake Total 400 ml 200 ml 440 ml Balance 400 ml 200 ml 440 ml Physical Exam General: Alert, Oriented X3, Cooperative, mild distress Lungs: Clear Abdomen: Normal bowel sounds, Soft, No tenderness Extremities: No cyanosis, No edema Skin: No rashes Assessment and Plan Assessmemt and Plan Assessment Acute pyelonephritis Sepsis, resolved Plan Continue home medication DVT prophylaxis Full code Possible discharge home on oral antibiotics Comment Review of Relevant I have reviewed the following items gurdeep (where applicable) has been applied. Medications: Current Medications Medications (Trade) Dose Ordered Sig/Pao Route PRN Reason Start Time Stop Time Status Last Admin Dose Admin Ceftriaxone Sodium (Rocephin) 2 gm Q24H IVP 10/14/20 10:00 10/14/20 10:15 Lactobacillus Rhamnosus (Culturelle) 1 cap BID PO 10/14/20 21:00 10/15/20 08:23 Justifications for Admission Other Justification acute pyelonephritis VI DOOLEY III DO Oct 15, 2020 09:06
--- NOTE | 2020-10-15 09:50 | NUR ---
Pt. discharged to home with Rx, verbalized understanding of discharge instructions.
--- NOTE | 2020-10-15 10:14 | NUR ---
SW following. Discussed with RN. Discharge order for home with self care. RN advised no SW needs.
--- NOTE | 2020-10-15 12:06 | DS ---
DATE OF DISCHARGE: 10/15/2020 ADMISSION DIAGNOSES: Pyelonephritis and sepsis. DISCHARGE DIAGNOSES: Resolving sepsis, resolving pyelonephritis. HOSPITAL COURSE: The patient is a pleasant 45-year-old female who presented with pyelonephritis. She was admitted. We gave her IV fluids, IV Zosyn for about 3 days. Today, I saw and examined her, she is at her baseline. She would like to go home. Vital signs are stable. White count is normal. I gave her a prescription for Augmentin. We are going to let her go home. DISPOSITION: Home. ACTIVITY: As tolerated. DIET: Low sodium. MEDICATIONS: Augmentin 875 p.o. b.i.d. for 5 days. TOTAL TIME: 31 minutes. VI DOOLEY DO DR: PRAVEEN/batsheva JOB#: [id number] / [id number]
== END 2020-10-15 09:50 | disposition home or self-care (01) | DRG 872 ==
LOC: ER 15:33 → 4 NORTH 19:10
PROVIDERS: ADMIT Family Medicine; ATTEND Family Medicine
DX: A41.9 Sepsis, unspecified organism (principal); N13.6 Pyonephrosis; Z82.49 Family history of ischemic heart disease and other diseases of the circulatory system; Z87.442 Personal history of urinary calculi
CPT/HCPCS: 36415; 74176; 76770; 80048; 80053; 81001; 81025; 83605; 85025; 87040; 87077; 87086; 87186; 96361; 96372; 96374; 96375; 99285; J0696; J1170; J1650; J1885; J2405; J2543; J7030; G0378